=== PATIENT | male | born 1960 | race Hispanic/Latino ===

== ENCOUNTER 2018-01-13 22:36 | Emergency (ER) | payer MEDICAID ==
[2018-01-13 22:36] VITALS: BMI 22.1
[2018-01-13 22:49] VITALS: O2SAT 97
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
[2018-01-14 00:12] VITALS: BP 108/72; PULSE 89; RESP 18; TEMP 97.8
== END 2018-01-14 00:30 | disposition home or self-care (01) ==
LOC: C.ER 22:36
DX: F10.10 Alcohol abuse, uncomplicated (principal); Z59.0 Homelessness; Z76.5 Malingerer [conscious simulation]; I10 Essential (primary) hypertension